=== PATIENT | female | born 1980 | race Native Hawaiian/Other Pacific Islander ===

== ENCOUNTER 2016-12-06 15:28 | Emergency (ER) | payer OTHER ==
[~2016-12-06] VITALS: Ht 170.2 cm; Wt 73.9 kg
[2016-12-06] MEDS ORDERED: CELEXA40 MG PO (15:56)
[2016-12-06 17:31] LABS: PLATELET COUNT 342 K/uL (152-353)
[2016-12-06 17:32] LABS: POTASSIUM 4.1 mmol/L (3.6-5.2); SODIUM 136 mmol/L (136-145)
[2016-12-07 05:13] VITALS: BP 120/82; TEMP 98.3
== END 2016-12-07 05:15 | disposition other institution (70) ==
LOC: ED 15:28
PROVIDERS: Emergency Medicine
DX: F32.89 Other specified depressive episodes (principal); R45.851 Suicidal ideations
CPT/HCPCS: 36415; 80048; 80307; 80320; 80329; 81000; 81025; 85027; 99285; G0479

== ENCOUNTER 2017-05-28 17:15 | Outpatient (CLI) | payer OTHER ==
[~2017-05-28 17:15] MED LIST: CELEXA40 MG PO
== END 2017-05-28 17:33 | disposition short-term general hospital (02) ==
LOC: AMB 17:15
DX: T43.222A Poisoning by selective serotonin reuptake inhibitors, intentional self-harm, initial encounter (principal); Y92.89 Other specified places as the place of occurrence of the external cause
CPT/HCPCS: A0425; A0427

== ENCOUNTER 2017-05-28 17:38 | Emergency (ER) | payer OTHER ==
[~2017-05-28] VITALS: Ht 180.3 cm; Wt 81.6 kg
[2017-05-28 18:26] LABS: PLATELET COUNT 330 K/uL (152-353)
[2017-05-28 18:34] LABS: POTASSIUM 3.9 mmol/L (3.6-5.2)
[2017-05-28 20:53] VITALS: BP 113/77; TEMP 98
== END 2017-05-28 20:56 | disposition home or self-care (01) ==
LOC: ED 17:38
DX: F12.10 Cannabis abuse, uncomplicated (principal); T43.221A Poisoning by selective serotonin reuptake inhibitors, accidental (unintentional), initial encounter; R00.1 Bradycardia, unspecified; Y92.89 Other specified places as the place of occurrence of the external cause
CPT/HCPCS: 80053; 80307; 81000; 85027; 93005; 96360; 99284; G0479

== ENCOUNTER 2018-04-10 09:06 | Outpatient (CLI) | payer OTHER | END 2018-04-10 09:24 | disposition short-term general hospital (02) | LOC: AMB 09:06 | DX: R10.31 Right lower quadrant pain (principal); R11.2 Nausea with vomiting, unspecified | CPT/HCPCS: A0425; A0427 ==

== ENCOUNTER 2018-08-03 00:13 | Emergency (ER) | payer OTHER ==
[~2018-08-03] VITALS: Ht 180.3 cm; Wt 81.6 kg
[2018-08-03 00:37] LABS: PLATELET COUNT 315 K/uL (152-353)
[2018-08-03 04:56] VITALS: BP 109/69; TEMP 98
== END 2018-08-03 05:26 | disposition home or self-care (01) ==
LOC: ED 00:13
PROVIDERS: Internal Medicine
DX: F32.89 Other specified depressive episodes (principal)
CPT/HCPCS: 36415; 80053; 80307; 80320; 80329; 81000; 85027; 93005; 99285

== ENCOUNTER 2021-03-23 11:53 | Emergency (ER) | payer OTHER ==
[~2021-03-23] VITALS: Ht 180.3 cm; Wt 88.9 kg
[2021-03-23 12:36] LABS: PLATELET COUNT 421 K/uL (152-353)
[2021-03-23 12:45] LABS: POTASSIUM 3.9 mmol/L (3.6-5.2)
[2021-03-23 14:57] VITALS: BP 114/78; TEMP 98.2
== END 2021-03-23 16:27 | disposition other institution (70) ==
LOC: ED 12:12
PROVIDERS: Family Medicine
DX: T14.91XA Suicide attempt, initial encounter (principal); F32.89 Other specified depressive episodes; Z11.52 Encounter for screening for COVID-19; X78.1XXA Intentional self-harm by knife, initial encounter; Y92.89 Other specified places as the place of occurrence of the external cause
CPT/HCPCS: 80053; 80307; 80320; 80329; 81000; 81025; 85027; 87635; 99285; U0003